=== PATIENT | male | born 1940 ===

== ENCOUNTER → 2020-04-06 11:04 | Outpatient (REF) | payer OTHER, SELFPAY | LOC: ANHLAB 11:04 | PROVIDERS: Visit Provider Nurse Practitioner | DX: C44.329 Squamous cell carcinoma of skin of other parts of face (principal) | CPT/HCPCS: 88305 ==

== ENCOUNTER → 2020-04-19 07:32 | Outpatient (REF) | payer MEDICARE, SELFPAY | LOC: ANHLAB 07:32 | PROVIDERS: Visit Provider Nurse Practitioner | DX: C44.329 Squamous cell carcinoma of skin of other parts of face (principal) | CPT/HCPCS: 88305; 88331; 88332 ==

== ENCOUNTER → 2021-06-27 16:05 | Outpatient (REF) | payer MEDICARE, SELFPAY | LOC: ANHLAB 16:05 | PROVIDERS: Visit Provider Nurse Practitioner | DX: L82.1 Other seborrheic keratosis (principal) | CPT/HCPCS: 88305 ==